=== PATIENT | female | born 1950 | race Caucasian/White ===

== ENCOUNTER 2016-12-02 20:00 | Observation (INO) | payer MEDICARE ==
[~2016-12-02] VITALS: Ht 149.9 cm; Wt 79.4 kg
[~2016-12-02 20:00] MED LIST: AMIO100T4 PO; BIMA2.5D3 OP; BRIM10DR2 OP; DABI150C PO; DEXL60CA3; DIGO125T82 PO; INSASP SQ; LEVA15HF4 IH; LORA-250 PO; LOSA25TA12 PO; PRAVASTATIN; PROP300T2
[2016-12-02] MEDS ORDERED: NITROGLYCERIN 0.4MG TABLET SL SL PRN (22:45)
[2016-12-02] MEDS ORDERED: ASPIRIN 81MG TABLET PO ONE (22:45)
[2016-12-02 23:39] LABS: BASOPHILS % 0.8 % (0.0-2.0); HEMATOCRIT. 42.1 % (36.0-48.0); HEMOGLOBIN. 14.3 g/dL (12.0-16.0); MEAN CORPUSCULAR HEMOGLOBIN 33.2 pg (28.0-32.0); MEAN CORPUSCULAR VOLUME 97.5 fL (81.0-99.0); MEAN PLATELET VOLUME 8.5 fl (7.4-10.4); MONOCYTES % 11.2 % (2.0-8.0); PLATELET 195 x1000/uL (130-400); RED BLOOD CELL COUNT 4.32 mill/uL (4.2-5.4); RED CELL DISTRIBUTION WIDTH 13.9 % (11.6-14.6)
[2016-12-02 23:41] LABS: INR 1.3; PROTHROMBIN TIME 13.4 sec (9.4-11.6)
[2016-12-02 23:49] LABS: CARBON DIOXIDE 26 mEq/L (21-32); CHLORIDE 109 mEq/L (98-107); TROPONIN I < 0.02 ng/mL (0.00-0.04)
[2016-12-03] MEDS ORDERED: MORPHINE SULFATE 4 MG/ML CPJ (NOT FOR IM USE) IV ONE (00:15)
[2016-12-03 02:50] VITALS: BP 167/94
[2016-12-03] MEDS ORDERED: METOPROLOL TARTRATE (03:08)
[2016-12-03] MEDS ORDERED: IMIT50 PO (03:08)
[2016-12-03] MEDS ORDERED: ISOSORBIDE (03:08)
[2016-12-03] MEDS ORDERED: GLIP5TAB12 PO (03:08)
[2016-12-03] MEDS ORDERED: SYMBICORT (03:08)
[2016-12-03] MEDS ORDERED: DEXL30CA3 PO (03:08)
[2016-12-03] MEDS ORDERED: PRAV10TA35 PO (03:08)
[2016-12-03] MEDS ORDERED: DEXTROSE 50% WATER 50ML SYRINGE IV PRN (03:45)
[2016-12-03] MEDS ORDERED: IPRATROPIUM BROMIDE (0.02%) 0.5MG/2.5ML NEB HHN PRN (03:45)
[2016-12-03] MEDS ORDERED: LEVOFLOXACIN 500MG PREMIX 100 ML IV SCH ×2 (03:45→08:00)
[2016-12-03 04:00] VITALS: BP 138/72
[2016-12-03] MEDS: TRAMADOL 50MG TABLET PO PRN ×3 (04:15→21:24)
[2016-12-03] MEDS ORDERED: METHYLPREDNISOLONE SOD SUCC 40 MG/ML VIAL IV SCH (06:00)
[2016-12-03] MEDS: BLOOD SUGAR DIAGNOSTIC STRIP TEST SCH ×4 (06:22→21:33)
[2016-12-03] MEDS: INSULIN LISPRO 100 UNITS/ML SUBCUT SCH ×4 (07:50→21:33)
[2016-12-03 08:00] VITALS: BP 193/89
[2016-12-03] MEDS: PANTOPRAZOLE SODIUM 40 MG/VIAL IV SCH (08:31)
[2016-12-03] MEDS ORDERED: LORAZEPAM 1MG TABLET PO PRN (09:00)
[2016-12-03] MEDS ORDERED: ENOXAPARIN 40MG/0.4ML SYR SUBCUT SCH (09:00)
[2016-12-03] MEDS: ISOSORBIDE MONONITRATE 60MG TABLET SR 24HR PO SCH (09:37)
[2016-12-03] MEDS: LOSARTAN POTASSIUM 25 MG TABLET PO SCH (09:38)
[2016-12-03] MEDS: METOPROLOL TARTRATE 50MG TABLET PO SCH ×2 (09:38→21:26)
[2016-12-03] MEDS: AMIODARONE HCL 200 MG TABLET PO SCH (09:38)
[2016-12-03] MEDS: GLIPIZIDE 5MG TABLET PO SCH (09:38)
[2016-12-03 11:23] LABS: CREATINE KINASE 47 IU/L (26-192); HDL CHOLESTEROL 69 mg/dL (40-59); LDL CHOLESTEROL 68 mg/dL (5-100); TROPONIN I < 0.02 ng/mL (0.00-0.04)
[2016-12-03 11:24] LABS: CREATINE KINASE MB FRACTION 1.7 ng/mL (0.5-3.6)
[2016-12-03 12:00] VITALS: BP 149/88
[2016-12-03 16:00] VITALS: BP 158/90
[2016-12-03] MEDS: POTASSIUM CHLORIDE 20MEQ TABLET SR PO SCH (16:21)
[2016-12-03] MEDS: FUROSEMIDE 40MG/4ML VIAL IVP SCH (16:21)
[2016-12-03] MEDS: DIGOXIN 125MCG TABLET PO SCH (18:08)
[2016-12-03 20:00] VITALS: BP 162/99
[2016-12-04] VITALS: BP 146/98
[2016-12-04] MEDS: TRAMADOL 50MG TABLET PO PRN ×2 (03:35→20:56)
[2016-12-04 04:00] VITALS: BP 162/78
[2016-12-04 06:33] LABS: BASOPHILS % 0.7 % (0.0-2.0); EOSINOPHILS % 0.1 % (0.0-5.0); HEMOGLOBIN. 14.7 g/dL (12.0-16.0); MEAN CORPUSCULAR HEMOGLOBIN 32.9 pg (28.0-32.0); MEAN CORPUSCULAR VOLUME 96.2 fL (81.0-99.0); MEAN PLATELET VOLUME 8.7 fl (7.4-10.4); MONOCYTES % 8.4 % (2.0-8.0); NEUTROPHILS % 81.8 % (40.0-76.0); PLATELET 209 x1000/uL (130-400); RED BLOOD CELL COUNT 4.48 mill/uL (4.2-5.4); RED CELL DISTRIBUTION WIDTH 13.9 % (11.6-14.6)
[2016-12-04 07:27] LABS: DIGOXIN 0.5 ng/mL (0.9-2.0)
[2016-12-04 07:43] VITALS: BP 149/84
[2016-12-04] MEDS: INSULIN LISPRO 100 UNITS/ML SUBCUT SCH ×4 (07:50→21:00)
[2016-12-04] MEDS: BLOOD SUGAR DIAGNOSTIC STRIP TEST SCH ×4 (07:58→21:00)
[2016-12-04] MEDS: PANTOPRAZOLE SODIUM 40 MG/VIAL IV SCH (08:25)
[2016-12-04] MEDS: POTASSIUM CHLORIDE 20MEQ TABLET SR PO SCH (08:26)
[2016-12-04] MEDS: GLIPIZIDE 5MG TABLET PO SCH (08:26)
[2016-12-04] MEDS: ISOSORBIDE MONONITRATE 60MG TABLET SR 24HR PO SCH (08:26)
[2016-12-04] MEDS: METOPROLOL TARTRATE 50MG TABLET PO SCH (08:26)
[2016-12-04] MEDS: FUROSEMIDE 40MG/4ML VIAL IVP SCH (08:26)
[2016-12-04] MEDS: LOSARTAN POTASSIUM 25 MG TABLET PO SCH (08:26)
[2016-12-04] MEDS: AMIODARONE HCL 200 MG TABLET PO SCH (08:26)
[2016-12-04 12:00] VITALS: BP 134/59
[2016-12-04] MEDS ORDERED: MAGNESIUM HYDROXIDE 400MG/5ML 30ML UDC PO NR (12:15)
[2016-12-04 16:00] VITALS: BP 136/98
[2016-12-04] MEDS: DIGOXIN 125MCG TABLET PO SCH (19:09)
[2016-12-04 20:00] VITALS: BP 120/58
[2016-12-05] VITALS: BP 125/61
[2016-12-05] MEDS: METOPROLOL TARTRATE 50MG TABLET PO SCH ×2 (01:44→08:44)
[2016-12-05 04:00] VITALS: BP 136/72
[2016-12-05] MEDS: BLOOD SUGAR DIAGNOSTIC STRIP TEST SCH ×2 (07:11→12:20)
[2016-12-05] MEDS: GLIPIZIDE 5MG TABLET PO SCH (07:13)
[2016-12-05 07:37] VITALS: BP 140/72
[2016-12-05] MEDS: INSULIN LISPRO 100 UNITS/ML SUBCUT SCH ×2 (07:50→12:50)
[2016-12-05] MEDS: FUROSEMIDE 40MG/4ML VIAL IVP SCH (08:42)
[2016-12-05] MEDS: POTASSIUM CHLORIDE 20MEQ TABLET SR PO SCH (08:43)
[2016-12-05] MEDS: ISOSORBIDE MONONITRATE 60MG TABLET SR 24HR PO SCH (08:44)
[2016-12-05] MEDS: LOSARTAN POTASSIUM 25 MG TABLET PO SCH (08:44)
[2016-12-05] MEDS: AMIODARONE HCL 200 MG TABLET PO SCH (08:44)
[2016-12-05 12:00] VITALS: BP 131/71
[2016-12-05 15:14] VITALS: BP 131/70
== END 2016-12-05 15:50 | disposition home or self-care (01) ==
LOC: ER 20:59 → 6WST 12-03 00:13 → INTOOBSV 12-03 00:13 → ENRESERV 12-03 00:21
PROVIDERS: ADMIT Internal Medicine; ATTEND Internal Medicine
DX: R07.89 Other chest pain (principal); I48.91 Unspecified atrial fibrillation; R00.2 Palpitations; F41.9 Anxiety disorder, unspecified; Z95.0 Presence of cardiac pacemaker; E78.5 Hyperlipidemia, unspecified; E11.9 Type 2 diabetes mellitus without complications; I11.0 Hypertensive heart disease with heart failure; I50.33 Acute on chronic diastolic (congestive) heart failure; Z85.42 Personal history of malignant neoplasm of other parts of uterus; Z79.01 Long term (current) use of anticoagulants; Z90.710 Acquired absence of both cervix and uterus
CPT/HCPCS: 36415; 71010; 80048; 80053; 80061; 80162; 82550; 82553; 82962; 83735; 83880; 84443; 84484; 85025; 85610; 93005; 93306; 96365; 96372; 96375; 96376; 99285; C1893; C9113; G0378; J1650; J1815; J1940; J1956; J2270; J2920; J7040; 96374

== ENCOUNTER 2017-03-20 17:14 | Observation (INO) | payer MEDICARE, OTHER ==
[~2017-03-20] VITALS: Ht 149.9 cm; Wt 77.1 kg
[~2017-03-20 17:14] MED LIST changes: +CETI-101 PO; -DEXL60CA3; +DEXT15DR5 OP; -DIGO125T82 PO; +FLUT9.9S NS; +GLIP5TAB12 PO; +IMIT50 PO; +ISOSORBIDE; -LEVA15HF4 IH; -LOSA25TA12 PO; +METOPROLOL TARTRATE; +NITR0.4T SL; +PRAV10TA35 PO; -PRAVASTATIN; +SPIR25TA4 PO; +SYMBICORT; +TIMO15DR12 OP
[2017-03-21 03:23] LABS: BASOPHILS % 0.6 % (0.0-2.0); EOSINOPHILS % 2.5 % (0.0-5.0); HEMATOCRIT. 41.9 % (36.0-48.0); HEMOGLOBIN. 14.3 g/dL (12.0-16.0); LYMPHOCYTES % 9.8 % (20.0-50.0); MEAN CORPUSCULAR HEMOGLOBIN 32.5 pg (28.0-32.0); MEAN CORPUSCULAR VOLUME 95.2 fL (81.0-99.0); MEAN PLATELET VOLUME 8.3 fl (7.4-10.4); NEUTROPHILS % 77.1 % (40.0-76.0); PLATELET 257 x1000/uL (130-400); RED CELL DISTRIBUTION WIDTH 14.1 % (11.6-14.6)
[2017-03-21 03:31] LABS: INR 1.2; PROTHROMBIN TIME 12.7 sec (9.4-11.6)
[2017-03-21 04:03] LABS: CARBON DIOXIDE 23 mEq/L (21-32); CHLORIDE 109 mEq/L (98-107); TROPONIN I < 0.02 ng/mL (0.00-0.04)
[2017-03-21 09:00] VITALS: BP 152/94
[2017-03-21] MEDS ORDERED: DEXTROSE 50% WATER 50ML SYRINGE IV PRN (10:15)
[2017-03-21] MEDS: BLOOD SUGAR DIAGNOSTIC STRIP TEST SCH ×3 (11:45→20:20)
[2017-03-21 12:00] VITALS: BP 143/79
[2017-03-21] MEDS ORDERED: INSLIS SUBCUT (13:17)
[2017-03-21] MEDS: INSULIN LISPRO 100 UNITS/ML SUBCUT SCH ×3 (13:56→20:21)
[2017-03-21 16:00] VITALS: BP 135/80
[2017-03-21] MEDS ORDERED: MORPHINE SULFATE 4 MG/ML CPJ (NOT FOR IM USE) IV PRN (18:15)
[2017-03-21] MEDS ORDERED: PANTOPRAZOLE 40MG DR TABLET PO SCH (19:00)
[2017-03-21 20:00] VITALS: BP 120/64
[2017-03-21] MEDS: FUROSEMIDE 40MG/4ML VIAL IVP SCH (20:20)
[2017-03-21] MEDS: PANTOPRAZOLE 40MG DR TABLET PO SCH (20:20)
[2017-03-21] MEDS: DILTIAZEM HCL 90MG CAPSULE SR 12HR PO SCH (20:20)
[2017-03-21] MEDS: LOSARTAN POTASSIUM 50 MG TABLET PO SCH (20:20)
[2017-03-21] MEDS: ASPIRIN 81MG TABLET PO SCH (20:20)
[2017-03-21] MEDS: AMIODARONE HCL 200 MG TABLET PO SCH (20:20)
[2017-03-21] MEDS ORDERED: LEVOFLOXACIN 500MG PREMIX 100 ML IV SCH (21:00)
[2017-03-21] MEDS: MORPHINE SULFATE 4 MG/ML CPJ (NOT FOR IM USE) IV PRN (23:25)
[2017-03-22] VITALS: BP 111/60
[2017-03-22 04:00] VITALS: BP 101/68
[2017-03-22] MEDS: MORPHINE SULFATE 4 MG/ML CPJ (NOT FOR IM USE) IV PRN ×4 (05:40→23:28)
[2017-03-22] MEDS: PANTOPRAZOLE 40MG DR TABLET PO SCH (05:45)
[2017-03-22] MEDS: BLOOD SUGAR DIAGNOSTIC STRIP TEST SCH ×4 (05:45→21:04)
[2017-03-22] MEDS: INSULIN LISPRO 100 UNITS/ML SUBCUT SCH ×4 (06:20→21:05)
[2017-03-22 08:00] VITALS: BP_SYST 108; BP_SYST 96; BP_DIAS 50; BP_DIAS 61
[2017-03-22] MEDS: ASPIRIN 81MG TABLET PO SCH (08:42)
[2017-03-22] MEDS: FUROSEMIDE 40MG/4ML VIAL IVP SCH (08:42)
[2017-03-22] MEDS: AMIODARONE HCL 200 MG TABLET PO SCH (08:42)
[2017-03-22] MEDS: DILTIAZEM HCL 90MG CAPSULE SR 12HR PO SCH ×2 (08:49→21:00)
[2017-03-22] MEDS: LOSARTAN POTASSIUM 50 MG TABLET PO SCH ×2 (08:50→21:00)
[2017-03-22] MEDS ORDERED: ENOXAPARIN 40MG/0.4ML SYR SUBCUT SCH (09:00)
[2017-03-22 10:45] LABS: BASOPHILS % 1.1 % (0.0-2.0); EOSINOPHILS % 1.4 % (0.0-5.0); HEMATOCRIT. 43.6 % (36.0-48.0); HEMOGLOBIN. 14.7 g/dL (12.0-16.0); LYMPHOCYTES % 8.8 % (20.0-50.0); MEAN CORPUSCULAR HEMOGLOBIN 32.4 pg (28.0-32.0); MEAN CORPUSCULAR VOLUME 96.3 fL (81.0-99.0); MEAN PLATELET VOLUME 8.9 fl (7.4-10.4); MONOCYTES % 10.2 % (2.0-8.0); NEUTROPHILS % 78.5 % (40.0-76.0); PLATELET 177 x1000/uL (130-400); RED BLOOD CELL COUNT 4.53 mill/uL (4.2-5.4); RED CELL DISTRIBUTION WIDTH 14.3 % (11.6-14.6)
[2017-03-22 11:20] LABS: CARBON DIOXIDE 28 mEq/L (21-32); CHLORIDE 99 mEq/L (98-107); HDL CHOLESTEROL 49 mg/dL (40-59); LDL CHOLESTEROL 84 mg/dL (5-100)
[2017-03-22 12:00] VITALS: BP 114/48
[2017-03-22 16:00] VITALS: BP 89/58
[2017-03-22] MEDS ORDERED: POTASSIUM CHLORIDE 20MEQ TABLET SR PO NR (19:00)
[2017-03-22] MEDS ORDERED: BISACODYL 5MG TABLET PO PRN (19:15)
[2017-03-22 20:00] VITALS: BP 108/63
[2017-03-22] MEDS ORDERED: LEVOFLOXACIN 250MG PREMIX 50 ML IV SCH (21:00)
[2017-03-22 21:21] LABS: CARBON DIOXIDE 28 mEq/L (21-32); CHLORIDE 99 mEq/L (98-107)
[2017-03-23] VITALS: BP 102/52
[2017-03-23 04:00] VITALS: BP 108/51
[2017-03-23] MEDS: MORPHINE SULFATE 4 MG/ML CPJ (NOT FOR IM USE) IV PRN ×3 (04:37→14:23)
[2017-03-23] MEDS: INSULIN LISPRO 100 UNITS/ML SUBCUT SCH ×3 (06:28→17:15)
[2017-03-23] MEDS: BLOOD SUGAR DIAGNOSTIC STRIP TEST SCH ×3 (06:28→17:44)
[2017-03-23 06:50] LABS: HEMATOCRIT. 41.9 % (36.0-48.0); HEMOGLOBIN. 14.2 g/dL (12.0-16.0); MEAN CORPUSCULAR HEMOGLOBIN 32.5 pg (28.0-32.0); MEAN PLATELET VOLUME 8.6 fl (7.4-10.4); PLATELET 231 x1000/uL (130-400); RED BLOOD CELL COUNT 4.36 mill/uL (4.2-5.4); RED CELL DISTRIBUTION WIDTH 14.2 % (11.6-14.6)
[2017-03-23 08:00] VITALS: BP 119/56
[2017-03-23] MEDS ORDERED: FAMOTIDINE 20MG TABLET PO SCH (09:00)
[2017-03-23] MEDS: FUROSEMIDE 40MG/4ML VIAL IVP SCH (09:06)
[2017-03-23] MEDS: LOSARTAN POTASSIUM 50 MG TABLET PO SCH (09:06)
[2017-03-23] MEDS: DILTIAZEM HCL 90MG CAPSULE SR 12HR PO SCH (09:07)
[2017-03-23] MEDS: ASPIRIN 81MG TABLET PO SCH (09:08)
[2017-03-23] MEDS: AMIODARONE HCL 200 MG TABLET PO SCH (09:08)
[2017-03-23 12:00] VITALS: BP 113/51
[2017-03-23 12:54] LABS: PLATELET ESTIMATE NORMAL
[2017-03-23 16:00] VITALS: BP 114/63
[2017-03-23 18:48] VITALS: BP 114/63
== END 2017-03-23 19:15 | disposition home or self-care (01) ==
LOC: ER 17:37 → INTOOBSV 03-21 04:15 → 5WST 03-21 04:15 → EDBEDREQ 03-21 04:16 → EDBEDREQTM 03-21 04:16 → ENRESERV 03-21 07:05 → 5WST 03-21 09:14
PROVIDERS: ADMIT Internal Medicine; ATTEND Internal Medicine
DX: I11.0 Hypertensive heart disease with heart failure (principal); I50.9 Heart failure, unspecified; I48.91 Unspecified atrial fibrillation; J42 Unspecified chronic bronchitis; J45.909 Unspecified asthma, uncomplicated; E11.9 Type 2 diabetes mellitus without complications; G47.00 Insomnia, unspecified; E66.9 Obesity, unspecified; Z85.42 Personal history of malignant neoplasm of other parts of uterus; Z90.710 Acquired absence of both cervix and uterus
CPT/HCPCS: 36415; 71045; 80053; 80061; 82962; 83880; 84443; 84484; 85025; 85610; 93005; 93306; 96365; 96366; 96375; 96376; 99285; A6261; G0378; J1815; J1940; J1956; J2270; J7050

== ENCOUNTER 2017-07-12 10:05 | Inpatient (IN) | payer OTHER ==
[~2017-07-12] VITALS: Ht 149.9 cm; Wt 65.5 kg
[~2017-07-12 10:05] MED LIST changes: +BIMA2.5D3 BOTHEYE; -BIMA2.5D3 OP; +DEXT15DR5 BOTHEYE; -DEXT15DR5 OP; +INSLIS SUBCUT; -METOPROLOL TARTRATE; +METOPROLOL TARTRATE PO; -PROP300T2; +PROP300T2 PO; +TIMO15DR12 BOTHEYE; -TIMO15DR12 OP
[2017-07-12] MEDS ORDERED: IPRATROPIUM/ALBUTEROL 0.5-3(2.5)MG/3ML NEB HHN ONE (10:45)
[2017-07-12] MEDS ORDERED: IPRATROPIUM BROMIDE (0.02%) 0.5MG/2.5ML NEB ONE (10:48)
[2017-07-12 11:01] LABS: BASOPHILS % 0.9 % (0.0-2.0); EOSINOPHILS % 3.5 % (0.0-5.0); HEMATOCRIT. 39.1 % (36.0-48.0); HEMOGLOBIN. 13.2 g/dL (12.0-16.0); MEAN CORPUSCULAR HEMOGLOBIN 31.9 pg (28.0-32.0); MEAN CORPUSCULAR VOLUME 94.7 fL (81.0-99.0); MEAN PLATELET VOLUME 8.4 fl (7.4-10.4); MONOCYTES % 8.8 % (2.0-8.0); NEUTROPHILS % 76.8 % (40.0-76.0); PLATELET 214 x1000/uL (130-400); RED BLOOD CELL COUNT 4.13 mill/uL (4.2-5.4); RED CELL DISTRIBUTION WIDTH 14.9 % (11.6-14.6)
[2017-07-12 11:08] LABS: CHLORIDE 108 mEq/L (98-107)
[2017-07-12 11:10] LABS: INR 1.6
[2017-07-12 12:45] LABS: HEPATITIS B SURFACE ANTIGEN NEGATIVE
[2017-07-12 13:13] LABS: HEPATITIS B CORE AB IGM NEGATIVE
[2017-07-12 13:15] LABS: HEPATITIS A AB IGM NEGATIVE (NEGATIVE)
[2017-07-12 13:22] LABS: CLARITY URINE CLOUDY (CLEAR); COLOR URINE YELLOW (YELLOW); KETONES URINE NEGATIVE (NEGATIVE); LEUKOCYTE ESTERASE URINE NEGATIVE (NEGATIVE); NITRITE URINE NEGATIVE (NEGATIVE); OCCULT BLOOD URINE NEGATIVE (NEGATIVE); PH URINE 5.5 (4.5-8.0); PROTEIN URINE NEGATIVE (NEGATIVE); SPECIFIC GRAVITY URINE 1.015 (1.005-1.030); UROBILINOGEN URINE 0.2 E.U./dL (0.2-1.0)
[2017-07-12 13:38] LABS: *AMPHETAMINES SCREEN URINE NEGATIVE (NEGATIVE); *BARBITURATES SCREEN URINE NEGATIVE (NEGATIVE); *BENZODIAZEPINES SCREEN URINE NEGATIVE (NEGATIVE); *COCAINE SCREEN URINE NEGATIVE (NEGATIVE)
[2017-07-12 13:39] LABS: METHADONE URINE SCREEN NEGATIVE (NEGATIVE); OPIATES URINE SCREEN NEGATIVE (NEGATIVE); PHENCYCLIDINE URINE SCREEN NEGATIVE (NEGATIVE)
[2017-07-12 13:41] LABS: CANNABINOID URINE SCREEN NEGATIVE (NEGATIVE)
[2017-07-12] MEDS ORDERED: MAGNESIUM OXIDE 400MG TABLET PO SCH (17:15)
[2017-07-12] MEDS: ACETAMINOPHEN 325MG TABLET PO PRN (20:00)
[2017-07-12 21:00] VITALS: BP 148/94
[2017-07-12] MEDS ORDERED: DOCUSATE SODIUM 100MG CAPSULE PO PRN (22:15)
[2017-07-12] MEDS ORDERED: ACETAMINOPHEN 650MG/20.3ML UDC GT PRN (22:15)
[2017-07-12] MEDS ORDERED: NITROGLYCERIN 0.4MG TABLET SL SL PRN (22:15)
[2017-07-12] MEDS ORDERED: DIPHENHYDRAMINE 50MG CAPSULE PO PRN (22:15)
[2017-07-13] VITALS: BP 125/73
[2017-07-13] MEDS ORDERED: DEXTROSE 50% WATER 50ML SYRINGE IV PRN (02:30)
[2017-07-13] MEDS: ACETAMINOPHEN 325MG TABLET PO PRN (03:36)
[2017-07-13 04:00] VITALS: BP 150/66
[2017-07-13] MEDS ORDERED: PROPAFENONE HCL 150MG TABLET PO SCH (06:00)
[2017-07-13] MEDS: BLOOD SUGAR DIAGNOSTIC STRIP TEST SCH ×4 (06:03→21:03)
[2017-07-13] MEDS: SODIUM CHLORIDE 0.9% INJ 3ML FLUSH IVF SCH ×3 (06:05→21:09)
[2017-07-13 06:20] LABS: CHLORIDE 108 mEq/L (98-107)
[2017-07-13 06:27] LABS: LDL CHOLESTEROL 74 mg/dL (5-100)
[2017-07-13 06:28] LABS: HDL CHOLESTEROL 48 mg/dL (40-59)
[2017-07-13] MEDS: INSULIN LISPRO 100 UNITS/ML SUBCUT SCH ×4 (08:10→21:00)
[2017-07-13 08:53] VITALS: BP 132/90
[2017-07-13] MEDS: TIMOLOL MALEATE 0.5% OPHTH DROPS 5ML EACHEYE SCH ×2 (09:00→17:00)
[2017-07-13] MEDS: AMIODARONE HCL 200 MG TABLET PO SCH (09:59)
[2017-07-13] MEDS: APIXABAN 5 MG TABLET PO SCH ×2 (09:59→18:45)
[2017-07-13] MEDS: SPIRONOLACTONE 25MG TABLET PO SCH (09:59)
[2017-07-13] MEDS: FAMOTIDINE 20MG TABLET PO SCH ×2 (09:59→20:57)
[2017-07-13 12:40] VITALS: BP 125/65
[2017-07-13 17:10] VITALS: BP 127/89
[2017-07-13 20:00] VITALS: BP 149/91
[2017-07-13] MEDS: AZITHROMYCIN 500 MG TABLET PO SCH (20:57)
[2017-07-13] MEDS: ATORVASTATIN CALCIUM 40MG TABLET PO SCH (20:57)
[2017-07-14] VITALS: BP 114/60
[2017-07-14 04:00] VITALS: BP 123/81
[2017-07-14] MEDS: BLOOD SUGAR DIAGNOSTIC STRIP TEST SCH ×4 (05:53→20:26)
[2017-07-14 05:59] LABS: INR 1.2
[2017-07-14 06:02] LABS: HEMATOCRIT 40.4 % (36.0-48.0); HEMOGLOBIN 13.5 g/dL (12.0-16.0); MEAN CORPUSCULAR HEMOGLOBIN 31.8 pg (28.0-32.0); MEAN CORPUSCULAR VOLUME 95.6 fL (81.0-99.0); PLATELET 188 x1000/uL (130-400); RED BLOOD CELL COUNT 4.23 mill/uL (4.2-5.4); RED CELL DISTRIBUTION WIDTH 14.8 % (11.6-14.6)
[2017-07-14] MEDS: SODIUM CHLORIDE 0.9% INJ 3ML FLUSH IVF SCH ×3 (06:12→20:28)
[2017-07-14 06:37] LABS: CHLORIDE 107 mEq/L (98-107)
[2017-07-14 08:00] VITALS: BP 122/78
[2017-07-14] MEDS: INSULIN LISPRO 100 UNITS/ML SUBCUT SCH ×4 (08:10→20:26)
[2017-07-14] MEDS: APIXABAN 5 MG TABLET PO SCH (10:47)
[2017-07-14] MEDS ORDERED: PROPOFOL 200MG/20ML VIAL IV ONE (11:18)
[2017-07-14] MEDS ORDERED: LIDOCAINE HCL/PF 1% 10 MG/ML 5ML VIAL ONE (11:19)
[2017-07-14 12:00] VITALS: BP 130/88
[2017-07-14] MEDS: TIMOLOL MALEATE 0.5% OPHTH DROPS 5ML EACHEYE SCH ×2 (13:03→18:12)
[2017-07-14] MEDS: SPIRONOLACTONE 25MG TABLET PO SCH (13:30)
[2017-07-14] MEDS: FAMOTIDINE 20MG TABLET PO SCH ×2 (13:30→20:28)
[2017-07-14] MEDS: AZITHROMYCIN 500 MG TABLET PO SCH (13:30)
[2017-07-14] MEDS: AMIODARONE HCL 200 MG TABLET PO SCH (13:30)
[2017-07-14 16:00] VITALS: BP 133/62
[2017-07-14 20:00] VITALS: BP 144/71
[2017-07-14] MEDS: ATORVASTATIN CALCIUM 40MG TABLET PO SCH (20:28)
[2017-07-14] MEDS: ACETAMINOPHEN 325MG TABLET PO PRN (22:21)
[2017-07-15] VITALS (21 sets, daily range): BP systolic 103–145; BP diastolic 47–94
[2017-07-15] MEDS: SODIUM CHLORIDE 0.9% INJ 3ML FLUSH IVF SCH ×3 (05:57→21:05)
[2017-07-15] MEDS: BLOOD SUGAR DIAGNOSTIC STRIP TEST SCH ×3 (07:08→21:05)
[2017-07-15] MEDS: INSULIN LISPRO 100 UNITS/ML SUBCUT SCH ×3 (07:11→21:00)
[2017-07-15] MEDS: SPIRONOLACTONE 25MG TABLET PO SCH (08:53)
[2017-07-15] MEDS: FAMOTIDINE 20MG TABLET PO SCH ×2 (08:53→21:04)
[2017-07-15] MEDS: AMIODARONE HCL 200 MG TABLET PO SCH (08:53)
[2017-07-15] MEDS: AZITHROMYCIN 500 MG TABLET PO SCH (08:54)
[2017-07-15] MEDS: TIMOLOL MALEATE 0.5% OPHTH DROPS 5ML EACHEYE SCH ×2 (09:24→16:37)
[2017-07-15 10:43] LABS: HEMATOCRIT 40.4 % (36.0-48.0); HEMOGLOBIN 13.5 g/dL (12.0-16.0); MEAN CORPUSCULAR HEMOGLOBIN 31.9 pg (28.0-32.0); MEAN CORPUSCULAR VOLUME 95.1 fL (81.0-99.0); PLATELET 205 x1000/uL (130-400); RED BLOOD CELL COUNT 4.25 mill/uL (4.2-5.4); RED CELL DISTRIBUTION WIDTH 14.8 % (11.6-14.6)
[2017-07-15 11:00] LABS: INR 1.1; PROTHROMBIN TIME 11.4 sec (9.4-11.6)
[2017-07-15] MEDS ORDERED: LIDOCAINE HCL/PF 1% 10 MG/ML 5ML VIAL ONE ×2 (11:01→11:45)
[2017-07-15] MEDS ORDERED: IODIXANOL 320MG/ML 100 ML BOTTLE IV ONE (11:01)
[2017-07-15] MEDS ORDERED: MIDAZOLAM HCL 2 MG/2 ML VIAL ONE (11:24)
[2017-07-15] MEDS ORDERED: FENTANYL CITRATE/PF 50MCG/ML 2ML VIAL ONE (11:25)
[2017-07-15] MEDS ORDERED: ATROPINE SULFATE 1MG/10ML SYR IV PRN (12:15)
[2017-07-15] MEDS ORDERED: ACETAMINOPHEN 325MG TABLET PO PRN (12:15)
[2017-07-15] MEDS ORDERED: HEPARIN SODIUM 1,000 UNIT/1ML VIAL IV ONE (14:02)
[2017-07-15] MEDS ORDERED: NITROGLYCERIN 50MCG/ML 10ML VIAL (CATH LAB) IV ONE (14:02)
[2017-07-15] MEDS ORDERED: NICARDIPINE 100MCG/ML 10ML VIAL (CATH LAB) IV ONE (14:02)
[2017-07-15] MEDS: ATORVASTATIN CALCIUM 40MG TABLET PO SCH (21:04)
[2017-07-16] VITALS (9 sets, daily range): BP systolic 122–137; BP diastolic 60–76
[2017-07-16 06:42] LABS: BASOPHILS % 0.5 % (0.0-2.0); EOSINOPHILS % 6.2 % (0.0-5.0); HEMATOCRIT. 39.4 % (36.0-48.0); HEMOGLOBIN. 13.2 g/dL (12.0-16.0); LYMPHOCYTES % 9.9 % (20.0-50.0); MEAN CORPUSCULAR HEMOGLOBIN 31.9 pg (28.0-32.0); MEAN CORPUSCULAR VOLUME 95.3 fL (81.0-99.0); MEAN PLATELET VOLUME 8.9 fl (7.4-10.4); MONOCYTES % 11.8 % (2.0-8.0); NEUTROPHILS % 71.6 % (40.0-76.0); PLATELET 177 x1000/uL (130-400); RED BLOOD CELL COUNT 4.14 mill/uL (4.2-5.4); RED CELL DISTRIBUTION WIDTH 14.5 % (11.6-14.6)
[2017-07-16] MEDS: SODIUM CHLORIDE 0.9% INJ 3ML FLUSH IVF SCH ×2 (06:42→13:31)
[2017-07-16] MEDS: BLOOD SUGAR DIAGNOSTIC STRIP TEST SCH ×2 (06:42→11:46)
[2017-07-16] MEDS: INSULIN LISPRO 100 UNITS/ML SUBCUT SCH ×2 (06:42→12:13)
[2017-07-16] MEDS: AZITHROMYCIN 500 MG TABLET PO SCH (08:29)
[2017-07-16] MEDS: AMIODARONE HCL 200 MG TABLET PO SCH (08:29)
[2017-07-16] MEDS: FAMOTIDINE 20MG TABLET PO SCH (08:30)
[2017-07-16] MEDS: TIMOLOL MALEATE 0.5% OPHTH DROPS 5ML EACHEYE SCH (08:30)
[2017-07-16] MEDS: SPIRONOLACTONE 25MG TABLET PO SCH (08:30)
== END 2017-07-16 15:32 | disposition home or self-care (01) | DRG 286 ==
LOC: ER 10:09 → 7WST 17:18 → ENRESERV 19:44 → 3WST 07-15 12:30
PROVIDERS: ADMIT Internal Medicine; ATTEND Internal Medicine
PROC: 4B02XSZ Measurement of Cardiac Pacemaker, External Approach (ICD-10-PCS; 2017-07-12)
PROC: 5A2204Z Restoration of Cardiac Rhythm, Single (ICD-10-PCS; principal; 2017-07-14)
PROC: 4B02XSZ Measurement of Cardiac Pacemaker, External Approach (ICD-10-PCS; 2017-07-14)
PROC: 4A023N7 Measurement of Cardiac Sampling and Pressure, Left Heart, Percutaneous Approach (ICD-10-PCS; 2017-07-15)
PROC: B2111ZZ Fluoroscopy of Multiple Coronary Arteries using Low Osmolar Contrast (ICD-10-PCS; 2017-07-15)
PROC: B2151ZZ Fluoroscopy of Left Heart using Low Osmolar Contrast (ICD-10-PCS; 2017-07-15)
DX: I48.0 Paroxysmal atrial fibrillation (principal); I50.43 Acute on chronic combined systolic (congestive) and diastolic (congestive) heart failure; I42.9 Cardiomyopathy, unspecified; C55 Malignant neoplasm of uterus, part unspecified; J06.9 Acute upper respiratory infection, unspecified; J45.909 Unspecified asthma, uncomplicated; K57.90 Diverticulosis of intestine, part unspecified, without perforation or abscess without bleeding; K43.9 Ventral hernia without obstruction or gangrene; I11.0 Hypertensive heart disease with heart failure; I44.7 Left bundle-branch block, unspecified; E66.9 Obesity, unspecified; E78.5 Hyperlipidemia, unspecified; I20.9 Angina pectoris, unspecified; I34.0 Nonrheumatic mitral (valve) insufficiency; E11.9 Type 2 diabetes mellitus without complications; I48.1 Persistent atrial fibrillation; K21.9 Gastro-esophageal reflux disease without esophagitis; Z79.01 Long term (current) use of anticoagulants; Z79.4 Long term (current) use of insulin; Z90.710 Acquired absence of both cervix and uterus; Z95.0 Presence of cardiac pacemaker; Z88.5 Allergy status to narcotic agent; Z88.2 Allergy status to sulfonamides; Z88.8 Allergy status to other drugs, medicaments and biological substances; Z79.899 Other long term (current) drug therapy; Z68.29 Body mass index [BMI] 29.0-29.9, adult
CPT/HCPCS: 36415; 71045; 74176; 80048; 80053; 80061; 80076; 80305; 81003; 82962; 83036; 83735; 83880; 84443; 84484; 85025; 85027; 85610; 85651; 86141; 86635; 86705; 86709; 86803; 87340; 92960; 93005; 93306; 93458; 94640; 99285; C1769; C1893; J1644; J1815; J2250; J2704; J3010; J3490; J7040; Q0163; Q9967

== ENCOUNTER 2019-08-25 10:08 | Emergency (ER) | payer MEDICARE, OTHER ==
[~2019-08-25] VITALS: Ht 157.5 cm; Wt 90.0 kg
[~2019-08-25 10:08] MED LIST changes: -BRIM10DR2 OP; -CETI-101 PO; -FLUT9.9S NS; -INSASP SQ; -ISOSORBIDE; -SPIR25TA4 PO; +SPIR25TA6 PO; -SYMBICORT
[2019-08-25] MEDS ORDERED: ASPIRIN 81MG TABLET PO ONE (11:00)
[2019-08-25 11:51] LABS: BASOPHILS % 1.5 % (0.0-2.0); EOSINOPHILS % 3.1 % (0.0-5.0); HEMATOCRIT. 37.5 % (36.0-48.0); HEMOGLOBIN. 12.3 g/dL (12.0-16.0); LYMPHOCYTES % 10.4 % (20.0-50.0); MEAN CORPUSCULAR HEMOGLOBIN 31.9 pg (28.0-32.0); MEAN PLATELET VOLUME 9.2 fl (7.4-10.4); PLATELET 219 x1000/uL (130-400); RED BLOOD CELL COUNT 3.87 mill/uL (4.2-5.4); RED CELL DISTRIBUTION WIDTH 14.8 % (11.6-14.6)
[2019-08-25 11:56] LABS: CHLORIDE 113 mEq/L (98-107)
[2019-08-25 12:00] LABS: D-DIMER 0.3 mg/L FEU (<0.50); INR 1.3; PARTIAL THROMBOPLASTIN TIME 33.9 sec (23.4-31.0); PROTHROMBIN TIME 13.6 sec (9.6-11.0)
[2019-08-25] MEDS ORDERED: KETOROLAC 30MG/ML VIAL IV ONE (12:00)
[2019-08-25 12:19] LABS: BG BASE EXCESS -3.7 mmol/L (-2.0-2.0); BG CARBOXYHEMOGLOBIN 0.3 % (0.5-1.5); BG DEOXYHEMOGLOBIN 3.2 % (0.0-5.0); BG FRACTION INSPIRED OXYGEN 21; BG HCO3 ACT 20.3 mmol/L (22.0-26.0); BG METHEMOGLOBIN 0.1 % (0.0-1.5); BG OXYGEN SATURATION 96.8 % (92.0-98.5); BG OXYHEMOGLOBIN 96.4 % (94.0-97.0); BG PCO2 33.4 mmHg (35.0-45.0); BG PH 7.401 (7.350-7.450); BG SAMPLE SITE RIGHT RADIAL; BG TOTAL HEMOGLOBIN 12.6 g/dL (12.0-18.0); BG VENT MODE ROOM AIR
[2019-08-25] MEDS ORDERED: MORPHINE SULFATE 2 MG/ML CPJ (NOT FOR IM USE) IV ONE (17:30)
[2019-08-25 18:16] VITALS: BP 151/82
== END 2019-08-25 18:55 | disposition short-term general hospital (02) ==
LOC: ER 10:08
DX: R07.9 Chest pain, unspecified (principal); I11.0 Hypertensive heart disease with heart failure; I50.9 Heart failure, unspecified; I48.91 Unspecified atrial fibrillation; J45.909 Unspecified asthma, uncomplicated; E11.9 Type 2 diabetes mellitus without complications; K21.9 Gastro-esophageal reflux disease without esophagitis; E78.00 Pure hypercholesterolemia, unspecified; Z88.2 Allergy status to sulfonamides; Z88.8 Allergy status to other drugs, medicaments and biological substances; Z95.0 Presence of cardiac pacemaker; Z98.62 Peripheral vascular angioplasty status; Z90.710 Acquired absence of both cervix and uterus
CPT/HCPCS: 36415; 36600; 71045; 80053; 82375; 82805; 83880; 84484; 85025; 85379; 85610; 85730; 93005; 96374; 96375; 99285; J1885; J2270

== ENCOUNTER 2021-10-13 10:45 | Emergency (ER) | payer MEDICARE ==
[~2021-10-13] VITALS: Ht 144.8 cm; Wt 55.0 kg
[2021-10-13] MEDS ORDERED: ONDANSETRON HCL 4MG/2ML INJ IV STA (11:31)
[2021-10-13] MEDS ORDERED: MORPHINE SULFATE 4 MG/ML CPJ (NOT FOR IM USE) IV ONE (11:45)
[2021-10-13 11:53] LABS: CHLORIDE 112 mEq/L (98-107)
[2021-10-13 11:55] LABS: HEMATOCRIT. 48.4 % (36.0-48.0); HEMOGLOBIN. 16.2 g/dL (12.0-16.0); MEAN CORPUSCULAR VOLUME 98.6 fL (81.0-99.0); MEAN PLATELET VOLUME 8.9 fl (7.4-10.4); PLATELET 307 x1000/uL (130-400); RED BLOOD CELL COUNT 4.91 mill/uL (4.2-5.4); RED CELL DISTRIBUTION WIDTH 13.6 % (11.6-14.6)
[2021-10-13 12:58] LABS: PLATELET ESTIMATE NORMAL
[2021-10-13 14:09] LABS: CLARITY URINE CLEAR (CLEAR); COLOR URINE YELLOW (YELLOW); KETONES URINE TRACE (NEGATIVE); LEUKOCYTE ESTERASE URINE NEGATIVE (NEGATIVE); NITRITE URINE NEGATIVE (NEGATIVE); OCCULT BLOOD URINE NEGATIVE (NEGATIVE); PH URINE 5.5 (4.5-8.0); PROTEIN URINE 1+ (NEGATIVE); SPECIFIC GRAVITY URINE 1.023 (1.005-1.030)
[2021-10-13] MEDS ORDERED: METOCLOPRAMIDE HCL 10MG/2ML VIAL IV ONE (14:30)
[2021-10-13 18:10] VITALS: BP 131/56
== END 2021-10-13 18:27 | disposition short-term general hospital (02) ==
LOC: ER 10:45 → CANBEDREQ 20:45
DX: R10.9 Unspecified abdominal pain (principal); I48.91 Unspecified atrial fibrillation; I10 Essential (primary) hypertension; E11.9 Type 2 diabetes mellitus without complications; K21.9 Gastro-esophageal reflux disease without esophagitis; E78.00 Pure hypercholesterolemia, unspecified; K59.00 Constipation, unspecified; Z79.899 Other long term (current) drug therapy; Z88.0 Allergy status to penicillin
CPT/HCPCS: 36415; 71045; 74176; 80053; 81003; 83605; 83690; 83880; 84484; 85025; 93005; 96374; 96375; 99285; J2270; J2405; J2765

== ENCOUNTER 2023-12-15 21:57 | Emergency (ER) | payer MEDICARE ==
[~2023-12-15] VITALS: Ht 162.6 cm; Wt 72.0 kg
[~2023-12-15 21:57] MED LIST changes: -AMIO100T4 PO; +APIX5TAB PO; -BIMA2.5D3 BOTHEYE; -DABI150C PO; +DIAZ2TAB MT; +DIGO125T2 PO; +FURO40TA5 PO; +GABA-290 PO; -GLIP5TAB12 PO; +GLIP5TAB22 PO; +HYDR-4001 MT; -IMIT50 PO; +INSU100I28 SQ; +ISOS30TA91 PO; -LORA-250 PO; +LOSA50TA41 PO; +METO-539 PO; +MOME13HF12 INH; -PROP300T2 PO
[2023-12-15 22:12] VITALS: BP 157/69; PULSE 66; RESP 18; TEMP 98.5; O2SAT 100
[2023-12-15] MEDS: SODIUM CHLORIDE 0.9% 250 ML IV ONE (22:47)
[2023-12-15 23:04] LABS: BASOPHILS % 1.3 % (0.0-2.0); EOSINOPHILS % 1.7 % (0.0-5.0); HEMOGLOBIN. 14.9 g/dL (12.0-16.0); LYMPHOCYTES % 20.1 % (20.0-50.0); MEAN CORPUSCULAR HEMOGLOBIN 32.4 pg (28.0-32.0); MEAN CORPUSCULAR HGB CONC 33.7 g/dL (31.0-37.0); MEAN PLATELET VOLUME 8.8 fl (7.4-10.4); MONOCYTES % 8.5 % (2.0-8.0); NEUTROPHILS % 68.4 % (40.0-76.0); PLATELET 226 x1000/uL (130-400); RED BLOOD CELL COUNT 4.59 mill/uL (4.2-5.4); RED CELL DISTRIBUTION WIDTH 13.6 % (11.6-14.6); WHITE BLOOD COUNT 8.6 x1000/uL (4.5-11.0)
[2023-12-15 23:11] LABS: POTASSIUM 4.7 mEq/L (3.5-5.1)
[2023-12-15 23:12] LABS: CALCIUM 10.2 mg/dL (8.7-10.4)
[2023-12-15 23:17] LABS: CREATININE 1.6 mg/dL (0.6-1.0)
== END 2023-12-16 01:10 | disposition home or self-care (01) ==
LOC: ER 21:57
DX: R42 Dizziness and giddiness (principal); I48.91 Unspecified atrial fibrillation; J45.909 Unspecified asthma, uncomplicated; I10 Essential (primary) hypertension; E78.00 Pure hypercholesterolemia, unspecified; E11.9 Type 2 diabetes mellitus without complications; K21.9 Gastro-esophageal reflux disease without esophagitis; Z79.4 Long term (current) use of insulin; Z79.01 Long term (current) use of anticoagulants; Z86.73 Personal history of transient ischemic attack (TIA), and cerebral infarction without residual deficits; Z87.440 Personal history of urinary (tract) infections; Z88.0 Allergy status to penicillin; Z88.2 Allergy status to sulfonamides; Z88.5 Allergy status to narcotic agent; Z95.0 Presence of cardiac pacemaker; Z90.710 Acquired absence of both cervix and uterus; Z79.899 Other long term (current) drug therapy; Z79.84 Long term (current) use of oral hypoglycemic drugs; Z79.51 Long term (current) use of inhaled steroids
CPT/HCPCS: 99283; 80048; 82962 ×2; 85025; 36415; J7050